=== PATIENT | male | born 1965 | race Hispanic/Latino ===

== ENCOUNTER 2019-02-19 07:30 | Day surgery (SDC) | payer MEDICARE ==
[2019-02-18 15:04] VITALS: BP 145/70
[2019-02-18 15:14] LABS: BASOPHILS % (AUTO) 0.1 % (0.0-5.0); HEMATOCRIT 41.1 % (42-54); LYMPHOCYTES % (AUTO) 42.4 % (21.0-51.0); MEAN CORPUSCULAR HEMOGLOBIN 31.7 pg (27.0-33.0); MEAN CORPUSCULAR HGB CONC 34.3 g/dL (32.0-36.0); MEAN CORPUSCULAR VOLUME 92.5 fL (79-99); MONOCYTES % (AUTO) 8.3 % (3.0-13.0); NEUTROPHILS % (AUTO) 49.2 % (40.0-77.0); NUCLEATED RED BLOOD CELLS 0.1 % (0.0-0.19); PLATELET COUNT (AUTO) 212 K/uL (130-400); RED BLOOD CELL COUNT(AUTO) 4.44 MIL/uL (4.50-6.20); RED CELL DISTRIBUTION WIDTH 14.9 % (11.0-15.5); WHITE BLOOD COUNT (AUTO) 6.9 K/uL (4.8-10.8)
[2019-02-18 15:15] LABS: APPEARANCE,URINE SL CLOUDY (CLEAR); BILIRUBIN,URINE NEGATIVE (NEGATIVE); COLOR,URINE YELLOW (YELLOW); GLUCOSE, URINE (UA) NEGATIVE (NEGATIVE); KETONES,URINE NEGATIVE (NEGATIVE); LEUKOCYTE ESTERASE ,URINE NEGATIVE (NEGATIVE); NITRATE,URINE NEGATIVE (NEGATIVE); OCCULT BLOOD,URINE SMALL (NEGATIVE); PROTEIN,URINE 100 mg/dL (NEGATIVE); UROBILINOGEN,URINE 0.2 mg/dL (0.2-1.0)
[2019-02-18 15:20] LABS: CREATININE 0.9 mg/dL (0.5-1.5); POTASSIUM 4.2 mmol/L (3.5-5.1)
[2019-02-18 15:22] LABS: BACTERIA,URINE Few /HPF (None Seen); MUCUS,URINE Few LPF (None Seen); SPERM,URINE Many /HPF (None Seen); SQUAMOUS EPITHELIAL CELL,UR 0-2 /HPF (0-2)
--- NOTE | 2019-02-18 15:25 | NUR ---
EKG INFORMED DR. PRESTON OF ABNORMAL EKG. NO ORDERS RECEIVED. PROCEED WITH PLANNED PROCEDURE.
--- NOTE | 2019-02-18 15:30 | NUR ---
[facility] N[employer]E STIMULATOR PT STATES HE HAS A STIMULATOR IN PLACE FOR SEIZURE CONTROL. Jese DAVIS RN INFORMED DR. PADILLA AND DR. PRESTON OF STIMULATOR. SPOKE TO THE COMPANY IN REGARDS TO STIMULATOR. DOES NOT NEED TO BE TURNED OFF DURING PROCEDURE. PROCEED WITH PLANNED PROCEDURE.
[~2019-02-19] VITALS: Ht 170.2 cm; Wt 103.4 kg
[2019-02-19] VITALS (14 sets, daily range): BP systolic 102–139; BP diastolic 52–93
[2019-02-19] MEDS: CEFTRIAXONE SODIUM 1 GM IVP SCH ×2 (06:00→12:24)
[~2019-02-19 07:30] MED LIST: ATOR20TA65 PO; CETI10TA57 PO; DICL100G27 TP; DOCU-116 PO; DULO60CA64 PO; FISH1CAP27 PO; GENTAMICIN 80 MG/NS 100 ML PB 100 ML IV SCH; LEVE1000 PO; LINA145C PO; LOSA25TA41 PO; METO50TA18 PO; MULT-1258 PO; MULT-40 PO; OMEP40CA37 PO; OXCA600T3 PO; TAMS0.4C32 PO; ZONI100C31 PO; ZONI25CA PO; nasonex NASAL
[2019-02-19] MEDS ORDERED: LACTATED RINGERS 1000ML 1,000 ML IV ONE (08:21)
[2019-02-19] MEDS ORDERED: IOHEXOL-350 50ML VIAL IV ONE (09:54)
[2019-02-19] MEDS ORDERED: DEXAMETHASONE SOD PHOSPHATE 10MG/ML 1ML VIAL ONE (12:16)
[2019-02-19] MEDS ORDERED: LIDOCAINE PF 2% 5ML ABBOJECT ONE ×2 (12:16→12:17)
[2019-02-19] MEDS ORDERED: SUCCINYLCHOLINE 200MG/10ML SYR ONE (12:16)
[2019-02-19] MEDS ORDERED: FENTANYL CITRATE PF 50 MCG/1 ML 2ML VIAL ONE (12:17)
[2019-02-19] MEDS ORDERED: GLYCOPYRROLATE 1 MG/5 ML SYRINGE ONE (12:17)
[2019-02-19] MEDS ORDERED: NEOSTIGMINE 5MG/5ML SYR IV ONE (12:17)
[2019-02-19] MEDS ORDERED: PROPOFOL 10 MG/ML 20ML VIAL IV ONE (12:17)
[2019-02-19] MEDS ORDERED: ONDANSETRON HCL 4 MG/2 ML VIAL ONE (12:17)
[2019-02-19] MEDS ORDERED: ROCURONIUM 10MG/1ML SYR 10 MG/ML ML ONE ×2 (12:17→12:39)
[2019-02-19] MEDS ORDERED: EPHEDRINE SULFATE 50 MG/ML AMPULE ONE (12:53)
[2019-02-19] MEDS ORDERED: MEPERIDINE-PF 25 MG/ML SYG ONE ×2 (13:25→13:42)
--- NOTE | 2019-02-19 15:26 | NUR ---
PT CAREGIVER AWARE NO TO REMOVE TEGA DERM AND NOT TO PULL ON STRING. F/U APPT SCHEDULED FOR 02-24-2019 PT. STABLE WITH NO QUESTION UPON D/C . PT LEFT VIA WHEEL CHAIR IN PRIVATE CAR.
== END 2019-02-19 15:30 | disposition home or self-care (01) ==
LOC: DAH 07:30
PROVIDERS: ATTEND Urology
DX: N20.1 Calculus of ureter (principal); N35.819 Other urethral stricture, male, unspecified site; E11.9 Type 2 diabetes mellitus without complications; I10 Essential (primary) hypertension; E66.9 Obesity, unspecified; E78.5 Hyperlipidemia, unspecified; K21.9 Gastro-esophageal reflux disease without esophagitis; F41.9 Anxiety disorder, unspecified; F32.9 Major depressive disorder, single episode, unspecified; N40.0 Benign prostatic hyperplasia without lower urinary tract symptoms; Z68.35 Body mass index [BMI] 35.0-35.9, adult; Z98.890 Other specified postprocedural states; Z90.49 Acquired absence of other specified parts of digestive tract; Z79.899 Other long term (current) drug therapy; Z82.49 Family history of ischemic heart disease and other diseases of the circulatory system; Z83.3 Family history of diabetes mellitus; Z82.3 Family history of stroke
CPT/HCPCS: 36415; 52356; 80048; 81001; 82948; 85025; 87088; 93005; 96365; A4215; A4221; A4222; A4223; A4354; A4358; A4600; A4663; A4930; A6207; C1758; C1769; C2617; J0330; J0696; J1100; J1580; J2001 ×2; J2175 ×2; J2405; J2704; J2710; J3010; J3490 ×2; J7030; J7120; 77002; Q9967

== ENCOUNTER → 2022-02-06 | Outpatient (CLI) | payer MEDICARE ==
[~2022-02-06] MED LIST changes: -DICL100G27 TP; +DICL100G32 TP; -GENTAMICIN 80 MG/NS 100 ML PB 100 ML IV SCH; +OMEP40CA21 PO; -OMEP40CA37 PO
== END | disposition home or self-care (01) ==
LOC: RAH 11:02
PROVIDERS: ATTEND Internal Medicine Gastroenterology
DX: K30 Functional dyspepsia (principal); R10.10 Upper abdominal pain, unspecified; R14.0 Abdominal distension (gaseous)
CPT/HCPCS: 78264; A9541